=== PATIENT | female | born 1995 | race Caucasian/White ===

== ENCOUNTER 2018-05-18 16:44 | Emergency (ER) | payer BC, OTHER ==
--- NOTE | 2018-05-18 17:52 | EDPHY ---
H & P Stated Complaint: nontraumatic r foot swelling with hx of pe/dvt when was on bcp Time Seen by Provider: 05/18/18 17:49 HPI/ROS: HPI: This is a 22-year-old female who presents with Chief Complaint: nontraumatic r foot swelling with hx of pe/dvt when was on bcp Location: Top of right foot Quality: Swelling Duration: 1 week Signs and Symptoms: No bleeding, no radiation, no numbness, no weakness, no tingling, no incontinence, no decreased range of motion, + pain, no fever Timing: Gradual onset Severity: [id number] Context: Patient presents from the student health clinic at [facility] with complaints at the top of her right foot swelling. Patient was diagnosed with a blood clot in her left calf 1 year ago secondary to control use. She has had no recent long distance travel. She now has nga IUD. + current some day smoker. Patient reports that she has recently started taking a hip pop class which she has not danced in several years. She reports that pain is experience when she jumps up and down on her right foot. Denies LOC/head injury/neck pain/dizziness/nausea/vomiting/amnesia. Modifying Factors: None Comment: ROS: A comprehensive 10 system review of systems is otherwise negative aside from elements mentioned in the history of present illness. MEDICAL/SURGICAL/SOCIAL HISTORY: Medical history: anemia, Vit D deficiency pe/dvt Surgical history: Denies Social history: Student at [employer] CONSTITUTIONAL: Extremely well-appearing young adult white female, awake and alert, no obvious distress HEENT: Atraumatic and normocephalic, PERRL, EOMI. Nares patent; no rhinorrhea; no nasal mucosal edema. Tympanic membranes clear. Oropharynx clear, no exudate and moist pink mucosa. Airway patent. No lymphadenopathy. No meningismus. Cardiovascular: Normal S1/S2, regular rate, regular rhythm, without murmur rub or gallop. PULMONARY/CHEST: Symmetrical and nontender. Clear to auscultation bilaterally. Good air movement. No accessory muscle usage. ABDOMEN: Soft, nondistended, nontender, no rebound, no guarding, no peritoneal signs, no masses or organomegaly. No CVAT. EXTREMITIES: 2/2 pulses, strength 5/5, right foot top shows mild edema but no erythema over the ligaments at the top of the foot. Right Ankle: Plantar flexion to 50, dorsiflexion to 20. Foot inversion to 35 degree. No tenderness/swelling Anterior talofibular ligament. No tenderness/swelling Calcaneofibular ligament, no tenderness/swelling posterior talofibular ligament , no tenderness/swelling posterior inferior tibiofibular ligament. Achilles tendon intact. no deformities, no clubbing, no cyanosis or edema. No palpable cord. No varicose veins. NEUROLOGICAL: no focal neuro deficits. GCS 15. SKIN: Warm and dry, no erythema. no rash. Good capillary refill. Source: Patient Exam Limitations: No limitations - Personal History LMP (Females 10-55): IUD In Place Current Tetanus Diphtheria and Acellular Pertussis (TDAP): No - Medical/Surgical History Hx Asthma: No Hx Chronic Respiratory Disease: No Hx Diabetes: No Hx Cardiac Disease: No Hx Renal Disease: No Hx Cirrhosis: No Hx Alcoholism: No Hx HIV/AIDS: No Hx Splenectomy or Spleen Trauma: No Other PMH: anemia, Vit D deficiency pe/dvt - Social History Smoking Status: Current some day smoker Constitutional: Initial Vital Signs Temperature (C) 36.9 C 05/18/18 16:50 Heart Rate 69 05/18/18 16:50 Respiratory Rate 18 05/18/18 16:50 Blood Pressure 123/77 H 05/18/18 16:50 O2 Sat (%) 97 05/18/18 16:50 O2 Delivery Mode Room Air Allergies/Adverse Reactions: No Known Allergies Allergy (Verified 05/18/18 16:48) Home Medications: Medication Instructions Recorded Paraguard Iud 05/18/18 Medical Decision Making - Diagnostics Imaging Results: Imaging Impressions Extremity Venous Study 05/18/18 17:49 Impression: No deep venous thrombosis right leg. Results called to Madai Noble PA-C, 6:30 PM Procedures: Procedure: Splint placement. A walking boot and crutches were applied by the Emergency Room hazardous material technician. After application of the splint I returned and re-examined the patient. The splint was adequately immobilizing the joint and distal to the splint the patient's circulation and sensation was intact. ED Course/Re-evaluation: Right lower extremity ultrasound ordered. Called by radiologist and no DVT. I suspect that patient has tendinitis secondary to overuse and pounding activities from dancing versus stress fracture. Placed in walking boot and given crutches with orthopedic follow-up in 2 weeks if no improvement. No signs of neurovascular compromise/tenting of skin/compartment syndrome/ extremities and joints examined above and below area of concern and are neurovascularly intact/gouty arthropathy/septic arthritis/DVT. This patient was seen under the supervision of my secondary supervising physician. I evaluated care for this patient independently. Discussed this patient with Dr. Mcmahan. Differential Diagnosis: Leg swelling including but not limited to hypoalbuminemia, congestive heart failure, cor pulmonale, chronic venous stasis and DVT. Departure - Departure Disposition: Home, Routine, Self-Care Clinical Impression: Tendinitis of right foot Condition: Good Instructions: Tendinitis (ED) Additional Instructions: Wear the walking boot while out of bed until pain free. Use crutches to aid ambulation. Start with toe-touch weight-bearing status and advance slowly as tolerated. Take Tylenol 650 mg every 4 hours and/or Ibuprofen 600 mg every 8 hours with food as needed for pain. Apply ice for 30 minutes at a time; 2-3 times per day for the next 1-2 days. Follow up with Orthopedics in 10-14 days at which time they will evaluate and recommend with you if conservative management versus MRI is indicated. Referrals: Rolando Moser MD [Medical Doctor] - As per Instructions Stand Alone Forms: School Excuse
[2018-05-18 19:15] VITALS: BP 113/74
== END 2018-05-18 19:14 | disposition home or self-care (01) ==
DX: M65.871 Other synovitis and tenosynovitis, right ankle and foot (principal); F17.200 Nicotine dependence, unspecified, uncomplicated; Z86.718 Personal history of other venous thrombosis and embolism
CPT/HCPCS: L4386

== ENCOUNTER 2019-02-23 11:48 | Emergency (ER) | payer BC, OTHER | END 2019-02-23 13:03 | disposition home or self-care (01) ==